=== PATIENT | male | born 1945 | race Caucasian/White ===

== ENCOUNTER 2021-03-23 13:49 | Inpatient (IN) ==
[2021-03-23] MEDS ORDERED: Ondansetron 4 MG/2 ML VIAL IVP PRN (18:04)
[2021-03-23] MEDS ORDERED: Naloxone 0.4 MG/ML INJ IVP PRN (18:04)
[2021-03-23] MEDS ORDERED: *HR* LORazepam 2 MG/ML VIAL IVP PRN ×2 (19:27→21:46)
[2021-03-23] MEDS: Lactulose Oral Soln 20 GM/30 ML UDC PO SCH ×2 (20:24→22:21)
[2021-03-23] MEDS ORDERED: Lactulose 200 GM, Sodium Chloride IRRigation 700 ML RC ONE (20:55)
[2021-03-23] MEDS: Ipratropium/Albuterol Neb 3 ML IH SCH ×2 (21:04→23:43)
[2021-03-23 21:09] LABS: ABG Base Excess 0 mEq/L (-2 to 3); ABG HCO3 24 mEq/L (21-27); ABG Oxygen Saturation 90 % (95-98); ABG PCO2 37 mmHg (35-45); ABG PH 7.43 pH Units (7.32-7.45); ABG PO2 57 mmHg (85-104); ABG TCO2 26 mEq/L (20-26)
[2021-03-23] MEDS ORDERED: methylPREDNISolone 125 MG/2 ML VIAL IVP ONE (21:53)
[2021-03-23] MEDS ORDERED: Budesonide/Formoterol 160/4.5 1 PUFF INH IH SCH (22:00)
[2021-03-23] MEDS ORDERED: *HR* Labetalol 20 MG/4 ML SYRINGE IVP PRN (22:55)
[2021-03-23 23:21] LABS: Acetaminophen < 10 mcg/mL (10-20); Ethanol < 10 mg/dL (Less than 10); Salicylate < 2.5 mg/dL (15.0-30.0)
[2021-03-23 23:45] VITALS: BP 132/68; PULSE 67; TEMP 97.8; O2SAT 95
[2021-03-24] MEDS ORDERED: Piperacillin/Tazobactam 3.375 GM in 0.9 % Sodium Chloride Mini Bag 100 ML IVPB SCH
[2021-03-24 04:27] LABS: Hepatitis B Core IgM Nonreactive (Nonreactive); Hepatitis C Virus Antibody Nonreactive (Nonreactive)
[2021-03-24 04:29] LABS: Hepatitis A Antibody IgM Nonreactive (Nonreactive)
[2021-03-24] MEDS ORDERED: MethylPREDNISolone 40 MG/ML VIAL IVP SCH ×2 (06:00→18:07)
[2021-03-24 19:19] LABS: Hepatitis B Surface Antigen Nonreactive (Nonreactive)
== END 2021-03-24 00:36 | disposition short-term general hospital (02) | DRG 64 ==
LOC: 2NNU
PROVIDERS: ADMIT Student in an Organized Health Care Education/Training Program; ATTEND Student in an Organized Health Care Education/Training Program

== ENCOUNTER 2021-06-16 10:51 | Inpatient (IN) ==
[2021-06-16] MEDS ORDERED: Naloxone 0.4 MG/ML INJ IVP PRN (16:28)
[2021-06-16] MEDS ORDERED: Isovue-370 500 ML BOTTLE IVP ONE (16:39)
[2021-06-16 17:00] LABS: Basophils % 0.1 %; Eosinophils # 0.3 K/mcL (0.0-0.6); Eosinophils % 3.1 %; Hemoglobin 13.2 g/dL (12.9-16.9); Immature Granulocytes % 0.6 % (0-4); Lymphocytes # 0.4 K/mcL (0.6-4.6); Lymphocytes % 3.6 %; Mean Corpuscular HGB Conc 33.8 g/dL (31.6-35.5); Mean Corpuscular Hemoglobin 29.9 pg (28.0-33.3); Mean Corpuscular Volume 88.2 fL (83.0-100.0); Mean Platelet Volume 13.1 fL (9.4-12.4); Monocytes # 0.7 K/mcL (0.0-1.3); Monocytes % 6.4 %; Neutrophils # 9.1 K/mcL (1.6-8.9); Red Blood Count 4.42 M/mcL (4.19-5.50); Red Cell Distribution Width 13.6 % (11.5-14.5); Segmented Neutrophils % 86.2 %; White Blood Count 10.6 K/mcL (4.3-11.1)
[2021-06-16 17:02] LABS: Platelet Count 39 K/mcL (140-400)
[2021-06-16 17:11] LABS: Prothrombin Time 11.6 Seconds (9.4-12.1)
[2021-06-16] MEDS ORDERED: Meropenem 500 MG in Water for inj. (sterile) 10 ML IVP SCH (17:11)
[2021-06-16 17:19] LABS: Calcium 7.8 mg/dL (8.6-10.3)
[2021-06-16] MEDS: predniSONE 20 MG TABLET PO SCH (17:57)
[2021-06-16] MEDS: levETIRAcetam 250 MG TABLET PO SCH (17:57)
[2021-06-16] MEDS: Meropenem 1,000 MG in Water for inj. (sterile) 20 ML IVP SCH (17:57)
[2021-06-16] MEDS: Ipratropium/Albuterol Neb 3 ML IH PRN (18:24)
[2021-06-16] MEDS: Ergocalciferol (VIT D2) 50,000 UNIT (1.25MG) CAP PO SCH (18:41)
[2021-06-16] MEDS ORDERED: Isovue-370 500 ML BOTTLE PO ONE (18:57)
[2021-06-17 01:26] LABS: Eosinophils % 0.5 %; Red Cell Distribution Width 13.5 % (11.5-14.5)
[2021-06-17 01:28] LABS: Basophils % 0.3 %; Hematocrit 34.2 % (37.5-50.1); Hemoglobin 11.8 g/dL (12.9-16.9); Immature Granulocytes % 0.3 % (0-4); Immature Platelets 18.6 % (1.1-6.1); Lymphocytes # 0.2 K/mcL (0.6-4.6); Lymphocytes % 3.4 %; Mean Corpuscular HGB Conc 34.5 g/dL (31.6-35.5); Mean Corpuscular Hemoglobin 30.4 pg (28.0-33.3); Mean Corpuscular Volume 88.1 fL (83.0-100.0); Mean Platelet Volume 12.2 fL (9.4-12.4); Monocytes # 0.1 K/mcL (0.0-1.3); Monocytes % 1.8 %; Neutrophils # 5.8 K/mcL (1.6-8.9); Red Blood Count 3.88 M/mcL (4.19-5.50); Segmented Neutrophils % 93.7 %; White Blood Count 6.2 K/mcL (4.3-11.1)
[2021-06-17 01:31] LABS: Platelet Count 31 K/mcL (140-400)
[2021-06-17 01:33] LABS: INR 1.1; Prothrombin Time 12.3 Seconds (9.4-12.1)
[2021-06-17 01:43] LABS: Albumin 2.5 g/dL (3.5-5.7); Albumin/Globulin Ratio 1.1 (1.1-2.2); Bilirubin,Total 0.7 mg/dL (0.3-1.0); Calcium 7.4 mg/dL (8.6-10.3); Globulin 2.3 g/dL (2.4-3.5); Phosphorous 2.6 mg/dL (2.7-4.5); Potassium 4.7 mEq/L (3.5-5.1); Total Protein 4.8 g/dL (6.4-8.9)
[2021-06-17] MEDS: levETIRAcetam 250 MG TABLET PO SCH ×2 (06:24→17:13)
[2021-06-17] MEDS: Meropenem 1,000 MG in Water for inj. (sterile) 20 ML IVP SCH ×2 (06:25→17:12)
[2021-06-17 08:47] LABS: Retculocyte # 0.04 M/mcL (0.05-0.10)
[2021-06-17] MEDS: predniSONE 20 MG TABLET PO SCH (09:15)
[2021-06-17 10:33] LABS: Iron 82 mcg/dL (65-175); Lactate Dehydrogenase 229 Units/L (140-271)
[2021-06-17 11:00] LABS: Folate 6.5 ng/mL (3.0-16.0)
[2021-06-17 11:01] LABS: Vitamin B12 755 pg/mL (250-1100)
[2021-06-17 11:41] LABS: Troponin I 0.03 ng/mL (< 0.04)
[2021-06-17] MEDS: Acetylcysteine 10% 2 ML INHSOL IH SCH ×2 (11:51→20:30)
[2021-06-17] MEDS: Ipratropium/Albuterol Neb 3 ML IH PRN ×2 (11:51→20:30)
[2021-06-17 12:36] LABS: Hepatitis B Surface Antigen Nonreactive (Nonreactive)
[2021-06-17 13:04] LABS: Hepatitis C Virus Antibody Nonreactive (Nonreactive)
[2021-06-17 13:05] LABS: Hepatitis B Core IgM Nonreactive (Nonreactive)
[2021-06-17 13:06] LABS: HIV-1&2 Antibody & p24 Ag Nonreactive (Nonreactive); Hepatitis A Antibody IgM Nonreactive (Nonreactive)
[2021-06-18] MEDS: Acetylcysteine 10% 2 ML INHSOL IH SCH (04:05)
[2021-06-18] MEDS: Ipratropium/Albuterol Neb 3 ML IH PRN (04:05)
[2021-06-18] MEDS: Meropenem 1,000 MG in Water for inj. (sterile) 20 ML IVP SCH (05:16)
[2021-06-18] MEDS: levETIRAcetam 250 MG TABLET PO SCH ×2 (05:16→17:40)
[2021-06-18 05:20] LABS: Basophils % 0.2 %; Red Cell Distribution Width 13.5 % (11.5-14.5)
[2021-06-18 05:23] LABS: Eosinophils % 0.5 %; Hematocrit 36.1 % (37.5-50.1); Immature Granulocytes % 0.6 % (0-4); Lymphocytes # 0.5 K/mcL (0.6-4.6); Lymphocytes % 6.1 %; Mean Corpuscular HGB Conc 33.2 g/dL (31.6-35.5); Mean Corpuscular Hemoglobin 29.3 pg (28.0-33.3); Mean Platelet Volume 12.5 fL (9.4-12.4); Monocytes # 0.5 K/mcL (0.0-1.3); Monocytes % 6.2 %; Neutrophils # 7.4 K/mcL (1.6-8.9); Segmented Neutrophils % 86.4 %; White Blood Count 8.6 K/mcL (4.3-11.1)
[2021-06-18 05:25] LABS: Platelet Count 51 K/mcL (140-400)
[2021-06-18 05:34] LABS: Albumin 2.8 g/dL (3.5-5.7); Albumin/Globulin Ratio 1.2 (1.1-2.2); Bilirubin,Total 0.6 mg/dL (0.3-1.0); Calcium 8.2 mg/dL (8.6-10.3); Globulin 2.4 g/dL (2.4-3.5); Magnesium 2.1 mg/dL (1.6-2.6); Phosphorous 2.8 mg/dL (2.7-4.5); Potassium 4.3 mEq/L (3.5-5.1); Total Protein 5.2 g/dL (6.4-8.9)
[2021-06-18] MEDS: predniSONE 20 MG TABLET PO SCH (09:20)
[2021-06-18] MEDS ORDERED: Acetaminophen IV 1,000 MG/100 ML BAG IVPB ONE (20:58)
[2021-06-19 03:15] LABS: Lymphocytes % 6.1 %
[2021-06-19 03:17] LABS: Basophils % 0.1 %; Eosinophils # 0.5 K/mcL (0.0-0.6); Eosinophils % 6.3 %; Hematocrit 37.6 % (37.5-50.1); Hemoglobin 12.8 g/dL (12.9-16.9); Immature Granulocytes % 0.5 % (0-4); Immature Platelets 11.1 % (1.1-6.1); Lymphocytes # 0.5 K/mcL (0.6-4.6); Mean Corpuscular Hemoglobin 30.4 pg (28.0-33.3); Mean Corpuscular Volume 89.3 fL (83.0-100.0); Mean Platelet Volume 11.7 fL (9.4-12.4); Monocytes # 0.5 K/mcL (0.0-1.3); Monocytes % 7.1 %; Neutrophils # 5.9 K/mcL (1.6-8.9); Red Blood Count 4.21 M/mcL (4.19-5.50); Red Cell Distribution Width 13.6 % (11.5-14.5); Segmented Neutrophils % 79.9 %; White Blood Count 7.4 K/mcL (4.3-11.1)
[2021-06-19 03:18] LABS: Platelet Count 59 K/mcL (140-400)
[2021-06-19 03:31] LABS: Albumin 2.7 g/dL (3.5-5.7); Albumin/Globulin Ratio 1.1 (1.1-2.2); Bilirubin,Total 0.7 mg/dL (0.3-1.0); Calcium 8.1 mg/dL (8.6-10.3); Globulin 2.5 g/dL (2.4-3.5); Magnesium 2.1 mg/dL (1.6-2.6); Phosphorous 2.8 mg/dL (2.7-4.5); Potassium 4.3 mEq/L (3.5-5.1); Total Protein 5.2 g/dL (6.4-8.9)
[2021-06-19] MEDS: levETIRAcetam 250 MG TABLET PO SCH ×2 (05:13→17:43)
[2021-06-19] MEDS ORDERED: Perflutren Lipid Microsphere 1.3 ML in 0.9 % Sodium Chloride 8.7 ML IVP PRN (07:30)
[2021-06-19] MEDS: Aspirin 81 MG TAB.CHEW PO SCH (08:31)
[2021-06-19] MEDS: predniSONE 20 MG TABLET PO SCH (08:31)
[2021-06-20 03:21] LABS: Basophils % 0.2 %; Eosinophils # 0.1 K/mcL (0.0-0.6); Hematocrit 34.6 % (37.5-50.1); Hemoglobin 11.2 g/dL (12.9-16.9); Immature Granulocytes % 0.5 % (0-4); Immature Platelets 9.9 % (1.1-6.1); Lymphocytes # 0.4 K/mcL (0.6-4.6); Lymphocytes % 6.2 %; Mean Corpuscular HGB Conc 32.4 g/dL (31.6-35.5); Mean Corpuscular Hemoglobin 29.5 pg (28.0-33.3); Mean Corpuscular Volume 91.1 fL (83.0-100.0); Mean Platelet Volume 11.9 fL (9.4-12.4); Monocytes # 0.3 K/mcL (0.0-1.3); Monocytes % 5.2 %; Red Cell Distribution Width 13.5 % (11.5-14.5); Segmented Neutrophils % 86.9 %; White Blood Count 5.8 K/mcL (4.3-11.1)
[2021-06-20 03:24] LABS: Platelet Count 58 K/mcL (140-400)
[2021-06-20 03:41] LABS: Albumin 2.5 g/dL (3.5-5.7); Albumin/Globulin Ratio 1.1 (1.1-2.2); Bilirubin,Total 0.6 mg/dL (0.3-1.0); Calcium 7.8 mg/dL (8.6-10.3); Globulin 2.3 g/dL (2.4-3.5); Magnesium 2.2 mg/dL (1.6-2.6); Phosphorous 2.9 mg/dL (2.7-4.5); Potassium 4.5 mEq/L (3.5-5.1); Total Protein 4.8 g/dL (6.4-8.9)
[2021-06-20] MEDS: levETIRAcetam 250 MG TABLET PO SCH ×2 (05:19→17:00)
[2021-06-20] MEDS: predniSONE 20 MG TABLET PO SCH (09:25)
[2021-06-20] MEDS: Aspirin 81 MG TAB.CHEW PO SCH (09:25)
[2021-06-21 04:54] LABS: Eosinophils % 0.3 %; Mean Platelet Volume 11.4 fL (9.4-12.4)
[2021-06-21 04:56] LABS: Immature Granulocytes % 0.5 % (0-4); Immature Platelets 6.6 % (1.1-6.1); Lymphocytes # 0.4 K/mcL (0.6-4.6); Lymphocytes % 5.9 %; Mean Corpuscular HGB Conc 32.4 g/dL (31.6-35.5); Mean Corpuscular Hemoglobin 29.7 pg (28.0-33.3); Mean Corpuscular Volume 91.6 fL (83.0-100.0); Monocytes # 0.3 K/mcL (0.0-1.3); Monocytes % 4.7 %; Red Blood Count 4.04 M/mcL (4.19-5.50); Red Cell Distribution Width 13.3 % (11.5-14.5); Segmented Neutrophils % 88.6 %; White Blood Count 5.9 K/mcL (4.3-11.1)
[2021-06-21 04:57] LABS: Neutrophils # 5.2 K/mcL (1.6-8.9); Platelet Count 75 K/mcL (140-400)
[2021-06-21 05:11] LABS: Albumin 2.9 g/dL (3.5-5.7); Bilirubin,Total 0.6 mg/dL (0.3-1.0); Calcium 8.3 mg/dL (8.6-10.3); Globulin 2.8 g/dL (2.4-3.5); Magnesium 2.2 mg/dL (1.6-2.6); Phosphorous 2.8 mg/dL (2.7-4.5); Potassium 4.7 mEq/L (3.5-5.1); Total Protein 5.7 g/dL (6.4-8.9)
[2021-06-21] MEDS: levETIRAcetam 250 MG TABLET PO SCH ×2 (05:20→17:08)
[2021-06-21] MEDS: predniSONE 20 MG TABLET PO SCH (07:03)
[2021-06-21] MEDS: Aspirin 81 MG TAB.CHEW PO SCH (07:03)
[2021-06-21] MEDS ORDERED: *HR* Labetalol 20 MG/4 ML SYRINGE IVP PRN (08:13)
[2021-06-21 10:55] LABS: Estimated Average Glucose 114 mg/dl; Hemoglobin A1C 5.6 %
[2021-06-21] MEDS: 0.9 % Sodium Chloride 1,000 ML IVC SCH ×2 (12:01→20:25)
[2021-06-21] MEDS: amLODIPine 5 MG TABLET PO SCH (17:08)
[2021-06-21] MEDS ORDERED: Isovue-370 500 ML BOTTLE IVP ONE (19:00)
[2021-06-21] MEDS: Ipratropium/Albuterol Neb 3 ML IH PRN (22:51)
[2021-06-22 02:26] LABS: Basophils % 0.2 %; Eosinophils % 0.5 %; Hematocrit 34.2 % (37.5-50.1); Hemoglobin 10.9 g/dL (12.9-16.9); Immature Granulocytes % 0.6 % (0-4); Immature Platelets 5.1 % (1.1-6.1); Lymphocytes # 0.5 K/mcL (0.6-4.6); Lymphocytes % 8.3 %; Mean Corpuscular HGB Conc 31.9 g/dL (31.6-35.5); Mean Corpuscular Hemoglobin 29.4 pg (28.0-33.3); Mean Corpuscular Volume 92.2 fL (83.0-100.0); Mean Platelet Volume 11.1 fL (9.4-12.4); Monocytes # 0.5 K/mcL (0.0-1.3); Monocytes % 7.8 %; Neutrophils # 5.2 K/mcL (1.6-8.9); Platelet Count 83 K/mcL (140-400); Red Blood Count 3.71 M/mcL (4.19-5.50); Red Cell Distribution Width 13.4 % (11.5-14.5); Segmented Neutrophils % 82.6 %; White Blood Count 6.3 K/mcL (4.3-11.1)
[2021-06-22 02:44] LABS: Alanine Aminotransferase 24 Units/L (7-52); Albumin 2.6 g/dL (3.5-5.7); Albumin/Globulin Ratio 1.1 (1.1-2.2); Alkaline Phosphatase 75 Units/L (34-104); Aspartate Amino Transferase 28 Units/L (13-39); BUN/Creatinine Ratio 19 (6-26); Bilirubin,Total 0.5 mg/dL (0.3-1.0); Blood Urea Nitrogen 26 mg/dL (8-23); Calcium 7.9 mg/dL (8.6-10.3); Carbon Dioxide 24 mEq/L (23-29); Chloride 104 mEq/L (98-107); Globulin 2.4 g/dL (2.4-3.5); Glucose 106 mg/dL (70-105); Osmolality,Calculated 279 (280-300); Potassium 4.6 mEq/L (3.5-5.1); Sodium 132 mEq/L (136-145); eGFR For African Americans > 60 (> 60); eGFR For Non-African Americans 51 (> 60)
[2021-06-22] MEDS: levETIRAcetam 250 MG TABLET PO SCH ×2 (05:30→17:17)
[2021-06-22] MEDS: predniSONE 20 MG TABLET PO SCH (07:27)
[2021-06-22] MEDS: amLODIPine 5 MG TABLET PO SCH (07:27)
[2021-06-23 02:19] LABS: Eosinophils % 0.3 %; Hematocrit 36.5 % (37.5-50.1); Hemoglobin 11.7 g/dL (12.9-16.9); Mean Corpuscular HGB Conc 32.1 g/dL (31.6-35.5); Mean Corpuscular Hemoglobin 29.4 pg (28.0-33.3); Mean Corpuscular Volume 91.7 fL (83.0-100.0); Red Blood Count 3.98 M/mcL (4.19-5.50); Segmented Neutrophils % 83.5 %
[2021-06-23 02:20] LABS: Immature Granulocytes % 0.6 % (0-4); Lymphocytes # 0.5 K/mcL (0.6-4.6); Lymphocytes % 7.5 %; Mean Platelet Volume 11.3 fL (9.4-12.4); Monocytes # 0.5 K/mcL (0.0-1.3); Monocytes % 8.1 %; Neutrophils # 5.3 K/mcL (1.6-8.9); Platelet Count 81 K/mcL (140-400); Red Cell Distribution Width 13.4 % (11.5-14.5); White Blood Count 6.4 K/mcL (4.3-11.1)
[2021-06-23 02:40] LABS: Alanine Aminotransferase 36 Units/L (7-52); Albumin 2.7 g/dL (3.5-5.7); Alkaline Phosphatase 84 Units/L (34-104); Aspartate Amino Transferase 38 Units/L (13-39); BUN/Creatinine Ratio 19 (6-26); Bilirubin,Total 0.5 mg/dL (0.3-1.0); Blood Urea Nitrogen 25 mg/dL (8-23); Calcium 8.1 mg/dL (8.6-10.3); Carbon Dioxide 24 mEq/L (23-29); Chloride 104 mEq/L (98-107); Globulin 2.6 g/dL (2.4-3.5); Glucose 107 mg/dL (70-105); Osmolality,Calculated 279 (280-300); Phosphorous 2.7 mg/dL (2.7-4.5); Potassium 4.7 mEq/L (3.5-5.1); Sodium 132 mEq/L (136-145); Total Protein 5.3 g/dL (6.4-8.9); eGFR For African Americans > 60 (> 60); eGFR For Non-African Americans 53 (> 60)
[2021-06-23] MEDS: levETIRAcetam 250 MG TABLET PO SCH ×2 (05:06→17:10)
[2021-06-23] MEDS: predniSONE 20 MG TABLET PO SCH (08:33)
[2021-06-23] MEDS: Ergocalciferol (VIT D2) 50,000 UNIT (1.25MG) CAP PO SCH (17:10)
[2021-06-24] MEDS: levETIRAcetam 250 MG TABLET PO SCH ×2 (05:20→17:14)
[2021-06-24 05:44] LABS: Eosinophils % 0.2 %; Hematocrit 37.4 % (37.5-50.1); Immature Granulocytes % 0.7 % (0-4); Lymphocytes # 0.5 K/mcL (0.6-4.6); Lymphocytes % 9.1 %; Mean Corpuscular HGB Conc 32.1 g/dL (31.6-35.5); Mean Corpuscular Hemoglobin 29.3 pg (28.0-33.3); Mean Corpuscular Volume 91.4 fL (83.0-100.0); Mean Platelet Volume 10.8 fL (9.4-12.4); Monocytes # 0.5 K/mcL (0.0-1.3); Monocytes % 8.6 %; Neutrophils # 4.7 K/mcL (1.6-8.9); Red Blood Count 4.09 M/mcL (4.19-5.50); Red Cell Distribution Width 13.3 % (11.5-14.5); Segmented Neutrophils % 81.4 %; White Blood Count 5.8 K/mcL (4.3-11.1)
[2021-06-24 05:45] LABS: Platelet Count 81 K/mcL (140-400)
[2021-06-24] MEDS ORDERED: predniSONE 20 MG TABLET PO SCH (09:00)
[2021-06-25 05:35] LABS: Basophils % 0.1 %; Lymphocytes % 8.7 %; Mean Corpuscular Volume 92.3 fL (83.0-100.0); Red Cell Distribution Width 13.7 % (11.5-14.5)
[2021-06-25 05:37] LABS: Eosinophils % 0.4 %; Hematocrit 38.3 % (37.5-50.1); Hemoglobin 12.7 g/dL (12.9-16.9); Immature Granulocytes % 0.6 % (0-4); Lymphocytes # 0.7 K/mcL (0.6-4.6); Mean Corpuscular HGB Conc 33.2 g/dL (31.6-35.5); Mean Corpuscular Hemoglobin 30.6 pg (28.0-33.3); Mean Platelet Volume 10.7 fL (9.4-12.4); Monocytes # 0.7 K/mcL (0.0-1.3); Monocytes % 8.6 %; Neutrophils # 6.4 K/mcL (1.6-8.9); Red Blood Count 4.15 M/mcL (4.19-5.50); Segmented Neutrophils % 81.6 %; White Blood Count 7.8 K/mcL (4.3-11.1)
[2021-06-25 05:41] LABS: Platelet Count 93 K/mcL (140-400)
[2021-06-25] MEDS: levETIRAcetam 250 MG TABLET PO SCH (06:05)
[2021-06-25 07:00] VITALS: TEMP 97.6
[2021-06-25] MEDS ORDERED: predniSONE 20 MG TABLET PO SCH (09:00)
[2021-06-25] MEDS ORDERED: Aspirin Enteric Coated 81 MG Tablet PO SCH (09:00)
[2021-06-25 09:19] LABS: Influenza A PCR Negative (Negative); Influenza B PCR Negative (Negative); Resp. Syncytial Virus PCR Negative (Negative); SARS-CoV-2 by PCR (In House) Negative (Negative)
[2021-06-25 12:54] VITALS: BP 142/74; PULSE 54; O2SAT 93
[2021-06-26] MEDS ORDERED: predniSONE 10 MG TABLET PO ONE (09:00)
== END 2021-06-25 13:07 | DRG 871 ==
LOC: 2ANU → SUATTDRO 16:28 → 2ANU 06-17 05:58
PROVIDERS: ADMIT Internal Medicine; ATTEND Internal Medicine

== ENCOUNTER 2021-07-28 14:23 | Inpatient (IN) ==
[2021-07-28] MEDS ORDERED: levoFLOXacin 750 MG/150 ML 750 MG/150 ML BAG IVPB ONE (14:27)
[2021-07-28] MEDS ORDERED: methylPREDNISolone 125 MG/2 ML VIAL IVP ONE (14:27)
[2021-07-28] MEDS ORDERED: Ipratropium/Albuterol Neb 3 ML IH ONE (14:30)
[2021-07-28 15:04] LABS: Hemoglobin 12.7 g/dL (12.9-16.9); Mean Platelet Volume 10.9 fL (9.4-12.4)
[2021-07-28 15:06] LABS: Hematocrit 40.6 % (37.5-50.1); Immature Platelets 6.1 % (1.1-6.1); Mean Corpuscular HGB Conc 31.3 g/dL (31.6-35.5); Mean Corpuscular Hemoglobin 30.2 pg (28.0-33.3); Mean Corpuscular Volume 96.4 fL (83.0-100.0); Platelet Count 130 K/mcL (140-400); Red Blood Count 4.21 M/mcL (4.19-5.50); Red Cell Distribution Width 15.4 % (11.5-14.5); White Blood Count 29.7 K/mcL (4.3-11.1)
[2021-07-28 15:22] LABS: Lymphocytes # 1.2 K/mcL (0.6-4.6); Monocytes # 0.6 K/mcL (0.0-1.3); Neutrophils # 27.9 K/mcL (1.6-8.9); Platelet Estimate Slight Decrease (Normal)
[2021-07-28 15:27] LABS: INR 1.1
[2021-07-28 15:27] LABS: Albumin 3.2 g/dL (3.5-5.7); Bilirubin,Direct 0.2 mg/dL (0.0-0.2); Bilirubin,Indirect 0.8 mg/dL (0.0-1.0); Calcium 8.2 mg/dL (8.6-10.3); Globulin 3.3 g/dL (2.4-3.5); Potassium 4.6 mEq/L (3.5-5.1); Total Protein 6.5 g/dL (6.4-8.9); Troponin I 0.04 ng/mL (< 0.04)
[2021-07-28 15:30] LABS: Activated Partial Thrombo Time 28.8 Seconds (26.0-36.0)
[2021-07-28 15:34] LABS: ABG Base Excess -1 mEq/L (-2 to 3); ABG HCO3 32 mEq/L (21-27); ABG Oxygen Saturation 99 % (95-98); ABG PCO2 102 mmHg (35-45); ABG PO2 193 mmHg (85-104); ABG TCO2 35 mEq/L (20-26)
[2021-07-28 16:15] LABS: Adenovirus Not Detected (Not Detect); Bordetella Pertussis Not Detected (Not Detect); Chlamydophila pneumoniae Not Detected (Not Detect); Coronavirus 229E Not Detected (Not Detect); Coronavirus HKU1 Not Detected (Not Detect); Coronavirus NL63 Not Detected (Not Detect); Coronavirus OC43 Not Detected (Not Detect); Human Metapneumovirus Not Detected (Not Detect); Human Rhinovirus/Enterovirus Not Detected (Not Detect); Influenza A Subtype 2009 H1 Not Detected (Not Detect); Influenza B Not Detected (Not Detect); Mycoplasma pneumoniae Not Detected (Not Detect); Parainfluenza Virus 1 Not Detected (Not Detect); Parainfluenza Virus 2 Not Detected (Not Detect); Parainfluenza Virus 3 Not Detected (Not Detect); Parainfluenza Virus 4 Not Detected (Not Detect); Respiratory Syncytial Virus Not Detected (Not Detect); SARS-CoV-2 Not Detected (Not Detect)
[2021-07-28] MEDS ORDERED: 0.9 % Sodium Chloride 1,000 ML IVC SCH (16:30)
[2021-07-28 16:51] LABS: Albumin 3.2 g/dL (3.5-5.7); Albumin/Globulin Ratio 1.1 (1.1-2.2); Bilirubin,Direct 0.2 mg/dL (0.0-0.2); Bilirubin,Indirect 0.7 mg/dL (0.0-1.0); Bilirubin,Total 0.9 mg/dL (0.3-1.0); Total Protein 6.2 g/dL (6.4-8.9)
[2021-07-28 17:07] LABS: Amorphous Sediment,Urine Few per hpf (None-Few); Bacteria,Urine Few per hpf (None-Few); Bilirubin,Urine Negative (Negative); Blood,Urine Trace (Negative); Clarity,Urine Turbid (Clear); Color,Urine Yellow (Yellow); Glucose,Urine (UA) Normal (Normal); Granular Casts,Urine Few per lpf (None Seen); Hyaline Casts,Urine Few per lpf (None Seen); Ketones,Urine Negative (Negative); Leukocyte Esterase,Urine Negative (Negative); Mucus,Urine Few per lpf (None-Few); Nitrite,Urine Negative (Negative); Protein,Urine 200 mg/dL (Neg-Trace); RBC,Urine 0-3 per hpf (0-3); Urobilinogen,Urine Normal (Normal)
[2021-07-28] MEDS ORDERED: Ondansetron 4 MG/2 ML VIAL IVP PRN (17:15)
[2021-07-28] MEDS ORDERED: Naloxone 0.4 MG/ML INJ IVP PRN (17:15)
[2021-07-28 17:23] LABS: ABG Base Excess 1 mEq/L (-2 to 3); ABG HCO3 32 mEq/L (21-27); ABG Oxygen Saturation 100 % (95-98); ABG PCO2 89 mmHg (35-45); ABG PH 7.17 pH Units (7.32-7.45); ABG PO2 482 mmHg (85-104); ABG TCO2 35 mEq/L (20-26)
[2021-07-28] MEDS: *HR* Heparin 5,000 UNIT/ML VIAL SQ SCH (19:07)
[2021-07-28] MEDS: Ipratropium/Albuterol Neb 3 ML IH SCH ×2 (19:55→23:25)
[2021-07-28] MEDS: Budesonide/Formoterol 160/4.5 1 PUFF INH IH SCH (19:55)
[2021-07-28] MEDS: Vancomycin Oral Soln 125 MG/2.5 ML UDC PO SCH ×2 (21:31→22:01)
[2021-07-28] MEDS: levETIRAcetam 250 MG TABLET PO SCH (22:01)
[2021-07-29] MEDS: Piperacillin/Tazobactam 3.375 GM in 0.9 % Sodium Chloride Mini Bag 100 ML IVPB SCH ×3 (00:27→15:36)
[2021-07-29] MEDS: MethylPREDNISolone 40 MG/ML VIAL IVP SCH ×3 (00:28→15:37)
[2021-07-29] MEDS: Ipratropium/Albuterol Neb 3 ML IH SCH ×5 (03:56→20:22)
[2021-07-29 04:06] LABS: ABG Base Excess 1 mEq/L (-2 to 3); ABG HCO3 26 mEq/L (21-27); ABG Oxygen Saturation 93 % (95-98); ABG PCO2 43 mmHg (35-45); ABG PH 7.39 pH Units (7.32-7.45); ABG PO2 66 mmHg (85-104); ABG TCO2 27 mEq/L (20-26)
[2021-07-29] MEDS: *HR* Heparin 5,000 UNIT/ML VIAL SQ SCH ×2 (05:18→17:03)
[2021-07-29] MEDS: Budesonide/Formoterol 160/4.5 1 PUFF INH IH SCH ×2 (07:50→20:23)
[2021-07-29] MEDS: Vancomycin Oral Soln 125 MG/2.5 ML UDC PO SCH ×4 (09:18→19:49)
[2021-07-29] MEDS: Aspirin 81 MG TAB.CHEW PO SCH (09:18)
[2021-07-29] MEDS: levETIRAcetam 250 MG TABLET PO SCH ×2 (09:19→19:49)
[2021-07-29] MEDS: lisinopriL 5 MG TABLET PO SCH (09:19)
[2021-07-29] MEDS: Levothyroxine 25 MCG TABLET PO SCH (09:19)
[2021-07-29 10:59] LABS: Calcium 8.2 mg/dL (8.6-10.3); Magnesium 1.8 mg/dL (1.6-2.6); Phosphorous 3.7 mg/dL (2.7-4.5); Potassium 4.3 mEq/L (3.5-5.1)
[2021-07-29 11:15] LABS: Troponin I 0.06 ng/mL (< 0.04)
[2021-07-29] MEDS: Furosemide 20 MG/2 ML VIAL IVP SCH ×2 (13:27→19:51)
[2021-07-29 14:21] LABS: Hematocrit 34.2 % (37.5-50.1); Immature Platelets 9.3 % (1.1-6.1); Mean Corpuscular HGB Conc 32.2 g/dL (31.6-35.5); Mean Corpuscular Hemoglobin 30.4 pg (28.0-33.3); Mean Corpuscular Volume 94.5 fL (83.0-100.0); Mean Platelet Volume 11.3 fL (9.4-12.4); Red Blood Count 3.62 M/mcL (4.19-5.50); White Blood Count 9.7 K/mcL (4.3-11.1)
[2021-07-29 14:35] LABS: Platelet Count 66 K/mcL (140-400)
[2021-07-29 14:39] LABS: Lymphocytes # 0.5 K/mcL (0.6-4.6); Monocytes # 0.2 K/mcL (0.0-1.3)
[2021-07-29 14:40] LABS: Platelet Estimate Decreased (Normal)
[2021-07-29] MEDS: Acetylcysteine 10% 2 ML INHSOL IH SCH ×2 (15:17→20:23)
[2021-07-30] MEDS: Ipratropium/Albuterol Neb 3 ML IH SCH ×6 (00:21→19:55)
[2021-07-30] MEDS: MethylPREDNISolone 40 MG/ML VIAL IVP SCH ×3 (00:22→17:10)
[2021-07-30] MEDS: Piperacillin/Tazobactam 3.375 GM in 0.9 % Sodium Chloride Mini Bag 100 ML IVPB SCH ×3 (00:24→17:09)
[2021-07-30] MEDS: Acetylcysteine 10% 2 ML INHSOL IH SCH ×2 (03:47→11:51)
[2021-07-30] MEDS: *HR* Heparin 5,000 UNIT/ML VIAL SQ SCH ×2 (06:14→17:10)
[2021-07-30 06:21] LABS: ABG Base Excess 1 mEq/L (-2 to 3); ABG HCO3 25 mEq/L (21-27); ABG Oxygen Saturation 88 % (95-98); ABG PCO2 35 mmHg (35-45); ABG PH 7.46 pH Units (7.32-7.45); ABG PO2 51 mmHg (85-104); ABG TCO2 26 mEq/L (20-26)
[2021-07-30] MEDS: Budesonide/Formoterol 160/4.5 1 PUFF INH IH SCH ×2 (08:06→19:55)
[2021-07-30] MEDS: lisinopriL 5 MG TABLET PO SCH (09:41)
[2021-07-30] MEDS: Furosemide 20 MG/2 ML VIAL IVP SCH (09:41)
[2021-07-30] MEDS: Vancomycin Oral Soln 125 MG/2.5 ML UDC PO SCH ×4 (09:41→21:09)
[2021-07-30] MEDS: Aspirin 81 MG TAB.CHEW PO SCH (09:42)
[2021-07-30] MEDS: levETIRAcetam 250 MG TABLET PO SCH ×2 (09:42→20:51)
[2021-07-30] MEDS: Levothyroxine 25 MCG TABLET PO SCH (09:42)
[2021-07-30 17:39] LABS: Calcium 8.1 mg/dL (8.6-10.3); Potassium 3.9 mEq/L (3.5-5.1)
[2021-07-31] MEDS: Ipratropium/Albuterol Neb 3 ML IH SCH ×7 (00:01→23:53)
[2021-07-31] MEDS: Piperacillin/Tazobactam 3.375 GM in 0.9 % Sodium Chloride Mini Bag 100 ML IVPB SCH ×3 (04:01→20:09)
[2021-07-31] MEDS: *HR* Heparin 5,000 UNIT/ML VIAL SQ SCH (05:59)
[2021-07-31] MEDS: Budesonide/Formoterol 160/4.5 1 PUFF INH IH SCH ×2 (07:27→20:29)
[2021-07-31 08:05] LABS: Basophils % 0.1 %; Hematocrit 35.7 % (37.5-50.1); Hemoglobin 11.5 g/dL (12.9-16.9); Immature Granulocytes % 0.5 % (0-4); Immature Platelets 10.8 % (1.1-6.1); Lymphocytes # 0.3 K/mcL (0.6-4.6); Lymphocytes % 4.3 %; Mean Corpuscular HGB Conc 32.2 g/dL (31.6-35.5); Mean Corpuscular Hemoglobin 29.8 pg (28.0-33.3); Mean Corpuscular Volume 92.5 fL (83.0-100.0); Monocytes # 0.4 K/mcL (0.0-1.3); Monocytes % 4.7 %; Red Blood Count 3.86 M/mcL (4.19-5.50); Red Cell Distribution Width 14.8 % (11.5-14.5); Segmented Neutrophils % 90.4 %; White Blood Count 7.9 K/mcL (4.3-11.1)
[2021-07-31 08:12] LABS: Calcium 8.2 mg/dL (8.6-10.3); Magnesium 1.8 mg/dL (1.6-2.6); Phosphorous 3.6 mg/dL (2.7-4.5); Potassium 3.9 mEq/L (3.5-5.1)
[2021-07-31] MEDS: Vancomycin Oral Soln 125 MG/2.5 ML UDC PO SCH ×4 (08:12→20:09)
[2021-07-31] MEDS: Albumin 25% 25gram/100mL 25 GM/100 ML IV.SOLN IVPB SCH ×2 (08:12→16:23)
[2021-07-31] MEDS: lisinopriL 5 MG TABLET PO SCH (08:17)
[2021-07-31] MEDS: Aspirin 81 MG TAB.CHEW PO SCH (08:18)
[2021-07-31] MEDS: predniSONE 20 MG TABLET PO SCH (08:19)
[2021-07-31] MEDS: levETIRAcetam 250 MG TABLET PO SCH ×2 (08:20→20:09)
[2021-07-31] MEDS: Levothyroxine 25 MCG TABLET PO SCH (08:20)
[2021-07-31 08:29] LABS: Neutrophils # 7.1 K/mcL (1.6-8.9); Platelet Count 70 K/mcL (140-400)
[2021-07-31] MEDS ORDERED: 0.9 % Sodium Chloride 250 ML IVC ONE ×2 (09:06→10:05)
[2021-08-01] MEDS: Albumin 25% 25gram/100mL 25 GM/100 ML IV.SOLN IVPB SCH ×2 (00:15→09:44)
[2021-08-01 01:27] LABS: Basophils % 0.2 %; Hematocrit 31.4 % (37.5-50.1); Hemoglobin 10.1 g/dL (12.9-16.9); Immature Granulocytes % 0.6 % (0-4); Lymphocytes # 0.3 K/mcL (0.6-4.6); Lymphocytes % 5.1 %; Mean Corpuscular HGB Conc 32.2 g/dL (31.6-35.5); Mean Corpuscular Hemoglobin 29.6 pg (28.0-33.3); Mean Corpuscular Volume 92.1 fL (83.0-100.0); Mean Platelet Volume 11.1 fL (9.4-12.4); Monocytes # 0.3 K/mcL (0.0-1.3); Monocytes % 5.3 %; Neutrophils # 4.7 K/mcL (1.6-8.9); Red Blood Count 3.41 M/mcL (4.19-5.50); Red Cell Distribution Width 14.8 % (11.5-14.5); Segmented Neutrophils % 88.8 %; White Blood Count 5.3 K/mcL (4.3-11.1)
[2021-08-01 01:32] LABS: Platelet Count 54 K/mcL (140-400)
[2021-08-01 01:42] LABS: Calcium 8.2 mg/dL (8.6-10.3); Magnesium 1.7 mg/dL (1.6-2.6); Phosphorous 3.3 mg/dL (2.7-4.5)
[2021-08-01] MEDS: Ipratropium/Albuterol Neb 3 ML IH SCH ×5 (03:58→20:25)
[2021-08-01] MEDS: Piperacillin/Tazobactam 3.375 GM in 0.9 % Sodium Chloride Mini Bag 100 ML IVPB SCH ×4 (04:37→20:28)
[2021-08-01] MEDS: Levothyroxine 25 MCG TABLET PO SCH (06:25)
[2021-08-01] MEDS: Budesonide/Formoterol 160/4.5 1 PUFF INH IH SCH ×2 (07:45→20:25)
[2021-08-01] MEDS: Vancomycin Oral Soln 125 MG/2.5 ML UDC PO SCH ×4 (09:45→20:34)
[2021-08-01] MEDS: predniSONE 20 MG TABLET PO SCH (09:45)
[2021-08-01] MEDS: levETIRAcetam 250 MG TABLET PO SCH ×2 (09:45→20:35)
[2021-08-01] MEDS: lisinopriL 5 MG TABLET PO SCH (09:46)
[2021-08-01] MEDS: Aspirin 81 MG TAB.CHEW PO SCH (09:46)
[2021-08-01] MEDS: Lactobacillus 1 EACH CAP.SPRINK PO SCH (14:23)
[2021-08-02] MEDS: Budesonide/Formoterol 160/4.5 1 PUFF INH IH SCH ×4 (00:24→20:06)
[2021-08-02] MEDS: Ipratropium/Albuterol Neb 3 ML IH SCH ×6 (00:28→20:06)
[2021-08-02 02:48] LABS: Hemoglobin 11.3 g/dL (12.9-16.9); Red Cell Distribution Width 15.1 % (11.5-14.5)
[2021-08-02 02:50] LABS: Basophils % 0.2 %; Hematocrit 34.1 % (37.5-50.1); Immature Granulocytes % 0.5 % (0-4); Immature Platelets 7.7 % (1.1-6.1); Lymphocytes # 0.3 K/mcL (0.6-4.6); Lymphocytes % 4.6 %; Mean Corpuscular HGB Conc 33.1 g/dL (31.6-35.5); Mean Corpuscular Hemoglobin 30.5 pg (28.0-33.3); Mean Corpuscular Volume 92.2 fL (83.0-100.0); Mean Platelet Volume 11.5 fL (9.4-12.4); Monocytes # 0.4 K/mcL (0.0-1.3); Monocytes % 6.3 %; Neutrophils # 5.1 K/mcL (1.6-8.9); Platelet Count 62 K/mcL (140-400); Segmented Neutrophils % 88.4 %; White Blood Count 5.8 K/mcL (4.3-11.1)
[2021-08-02 03:06] LABS: Calcium 8.3 mg/dL (8.6-10.3); Magnesium 1.8 mg/dL (1.6-2.6); Phosphorous 2.7 mg/dL (2.7-4.5); Potassium 4.4 mEq/L (3.5-5.1)
[2021-08-02 03:36] LABS: Platelet Estimate Normal (Normal)
[2021-08-02] MEDS: Piperacillin/Tazobactam 3.375 GM in 0.9 % Sodium Chloride Mini Bag 100 ML IVPB SCH ×3 (05:54→19:51)
[2021-08-02] MEDS: Levothyroxine 25 MCG TABLET PO SCH (05:54)
[2021-08-02] MEDS: Lactobacillus 1 EACH CAP.SPRINK PO SCH (09:00)
[2021-08-02] MEDS: predniSONE 20 MG TABLET PO SCH (09:00)
[2021-08-02] MEDS: levETIRAcetam 250 MG TABLET PO SCH ×2 (09:00→19:52)
[2021-08-02] MEDS: Aspirin 81 MG TAB.CHEW PO SCH (09:00)
[2021-08-02] MEDS: Vancomycin Oral Soln 125 MG/2.5 ML UDC PO SCH ×4 (09:00→19:52)
[2021-08-02] MEDS: lisinopriL 5 MG TABLET PO SCH (09:00)
[2021-08-03] MEDS: Ipratropium/Albuterol Neb 3 ML IH SCH ×4 (00:08→11:56)
[2021-08-03] MEDS: Piperacillin/Tazobactam 3.375 GM in 0.9 % Sodium Chloride Mini Bag 100 ML IVPB SCH (04:29)
[2021-08-03] MEDS: Levothyroxine 25 MCG TABLET PO SCH (06:01)
[2021-08-03] MEDS: Budesonide/Formoterol 160/4.5 1 PUFF INH IH SCH (07:15)
[2021-08-03 08:09] LABS: Eosinophils % 0.5 %; Hemoglobin 12.3 g/dL (12.9-16.9)
[2021-08-03 08:11] LABS: Hematocrit 39.1 % (37.5-50.1); Immature Granulocytes % 0.8 % (0-4); Immature Platelets 8.7 % (1.1-6.1); Lymphocytes # 0.4 K/mcL (0.6-4.6); Mean Corpuscular HGB Conc 31.5 g/dL (31.6-35.5); Mean Corpuscular Hemoglobin 29.7 pg (28.0-33.3); Mean Corpuscular Volume 94.4 fL (83.0-100.0); Mean Platelet Volume 12.3 fL (9.4-12.4); Monocytes # 0.7 K/mcL (0.0-1.3); Neutrophils # 4.8 K/mcL (1.6-8.9); Red Blood Count 4.14 M/mcL (4.19-5.50); Red Cell Distribution Width 15.3 % (11.5-14.5); Segmented Neutrophils % 80.7 %
[2021-08-03 08:18] LABS: Platelet Count 61 K/mcL (140-400)
[2021-08-03 08:28] LABS: Calcium 8.8 mg/dL (8.6-10.3); Phosphorous 3.2 mg/dL (2.7-4.5); Potassium 3.8 mEq/L (3.5-5.1)
[2021-08-03] MEDS: Aspirin 81 MG TAB.CHEW PO SCH (08:28)
[2021-08-03] MEDS: Lactobacillus 1 EACH CAP.SPRINK PO SCH (08:28)
[2021-08-03] MEDS: levETIRAcetam 250 MG TABLET PO SCH (08:28)
[2021-08-03] MEDS: predniSONE 20 MG TABLET PO SCH (08:29)
[2021-08-03] MEDS: lisinopriL 5 MG TABLET PO SCH (08:29)
[2021-08-03] MEDS: Vancomycin Oral Soln 125 MG/2.5 ML UDC PO SCH (08:32)
[2021-08-03 10:34] VITALS: BP 132/65; PULSE 64; TEMP 97.4
[2021-08-03 11:58] VITALS: O2SAT 98
== END 2021-08-03 13:13 | disposition home health service (06) | DRG 871 ==
LOC: EMEROOARM 14:23 → 2NENU 14:23 → SUATTDRO 18:01 → 2NENU 18:50 → SUATTDRO 20:47 → 2ANU 07-30 20:35 → 3ANU 07-30 20:35 → 2ANU 07-30 20:40
PROVIDERS: ADMIT Family Medicine; ATTEND Hospitalist

== ENCOUNTER 2021-08-22 14:11 | Inpatient (IN) ==
[2021-08-22] MEDS ORDERED: Isovue-370 500 ML BOTTLE IVP ONE (14:47)
[2021-08-22 14:49] LABS: Red Blood Count 3.99 M/mcL (4.19-5.50)
[2021-08-22 14:51] LABS: Hemoglobin 12.4 g/dL (12.9-16.9); Immature Platelets 6.6 % (1.1-6.1); Mean Corpuscular HGB Conc 30.2 g/dL (31.6-35.5); Mean Corpuscular Hemoglobin 31.1 pg (28.0-33.3); Mean Corpuscular Volume 102.8 fL (83.0-100.0); Mean Platelet Volume 10.9 fL (9.4-12.4); Platelet Count 103 K/mcL (140-400); White Blood Count 4.5 K/mcL (4.3-11.1)
[2021-08-22 15:02] LABS: Prothrombin Time 11.1 Seconds (9.4-12.1)
[2021-08-22 15:05] LABS: Activated Partial Thrombo Time 31.8 Seconds (26.0-36.0)
[2021-08-22 15:08] LABS: Alanine Aminotransferase 70 Units/L (7-52); Albumin 3.1 g/dL (3.5-5.7); Alkaline Phosphatase 171 Units/L (34-104); Aspartate Amino Transferase 47 Units/L (13-39); BUN/Creatinine Ratio 23 (6-26); Bilirubin,Direct 0.5 mg/dL (0.0-0.2); Bilirubin,Indirect 1.6 mg/dL (0.0-1.0); Bilirubin,Total 2.1 mg/dL (0.3-1.0); Blood Urea Nitrogen 44 mg/dL (8-23); Calcium 8.6 mg/dL (8.6-10.3); Carbon Dioxide 34 mEq/L (23-29); Chloride 106 mEq/L (98-107); Creatine Kinase 82 Units/L (30-223); Ethanol < 10 mg/dL (Less than 10); Globulin 3.2 g/dL (2.4-3.5); Glucose 117 mg/dL (70-105); Osmolality,Calculated 306 (280-300); Potassium 5.2 mEq/L (3.5-5.1); Sodium 142 mEq/L (136-145); Total Protein 6.3 g/dL (6.4-8.9); Troponin I 0.03 ng/mL (< 0.04); eGFR For African Americans 41 (> 60); eGFR For Non-African Americans 34 (> 60)
[2021-08-22 15:47] LABS: Amphetamine Screen,Urine Negative ng/mL (Cutoff=1000); Barbiturate Screen,Urine Negative ng/mL (Cutoff=200); Benzodiazepines Screen,Urine Negative ng/mL (Cutoff=200); Cannabinoid Screen,Urine Negative ng/mL (Cutoff = 50); Cocaine Screen,Urine Negative ng/mL (Cutoff= 300); Opiate Screen,Urine Negative ng/mL (Cutoff=300); Phencyclidine Screen,Urine Negative ng/mL (Cutoff=25)
[2021-08-22 15:53] LABS: Amorphous Sediment,Urine Few per hpf (None-Few); Bacteria,Urine Few per hpf (None-Few); Bilirubin,Urine Negative (Negative); Blood,Urine Trace (Negative); Clarity,Urine Turbid (Clear); Color,Urine Yellow (Yellow); Glucose,Urine (UA) Normal (Normal); Ketones,Urine Negative (Negative); Leukocyte Esterase,Urine Negative (Negative); Mucus,Urine Few per lpf (None-Few); Nitrite,Urine Negative (Negative); Protein,Urine 50 mg/dL (Neg-Trace); RBC,Urine 0-3 per hpf (0-3); Squamous Epithelial Cell,Urine Few per hpf (None-Few); Urobilinogen,Urine Normal (Normal); WBC,Urine 0-3 per hpf (0-3)
[2021-08-22 16:01] LABS: Anisocytosis 1+ (Not Present); Large Platelets Present (Not Present); Platelet Estimate Decreased (Normal)
[2021-08-22 16:08] LABS: Neutrophils # 3.3 K/mcL (1.6-8.9)
[2021-08-22 20:37] LABS: Influenza A PCR Negative (Negative); Influenza B PCR Negative (Negative); Resp. Syncytial Virus PCR Negative (Negative); SARS-CoV-2 by PCR (In House) Negative (Negative)
[2021-08-22] MEDS ORDERED: Perflutren Lipid Microsphere 1.3 ML in 0.9 % Sodium Chloride 8.7 ML IVP PRN (22:40)
[2021-08-22] MEDS ORDERED: Ondansetron 4 MG/2 ML VIAL IVP PRN (22:49)
[2021-08-22] MEDS ORDERED: Naloxone 0.4 MG/ML INJ IVP PRN (22:49)
[2021-08-23] MEDS: Levalbuterol Neb 1.25 MG/3 ML IH SCH ×6 (00:01→20:49)
[2021-08-23] MEDS: Piperacillin/Tazobactam 3.375 GM in 0.9 % Sodium Chloride Mini Bag 100 ML IVPB SCH ×3 (00:52→16:46)
[2021-08-23] MEDS ORDERED: Vancomycin 1,250 MG/262.5 ML IV.SOLN IVPB ONE (01:00)
[2021-08-23] MEDS ORDERED: Aspirin Enteric Coated 81 MG Tablet PO ONE (01:17)
[2021-08-23 02:47] LABS: Hematocrit 36.4 % (37.5-50.1); Hemoglobin 11.1 g/dL (12.9-16.9); Mean Corpuscular HGB Conc 30.5 g/dL (31.6-35.5); Mean Corpuscular Hemoglobin 31.2 pg (28.0-33.3); Mean Corpuscular Volume 102.2 fL (83.0-100.0); Mean Platelet Volume 11.6 fL (9.4-12.4); Red Blood Count 3.56 M/mcL (4.19-5.50); Red Cell Distribution Width 16.1 % (11.5-14.5)
[2021-08-23 02:49] LABS: Platelet Count 85 K/mcL (140-400)
[2021-08-23 02:58] LABS: Prothrombin Time 11.1 Seconds (9.4-12.1)
[2021-08-23 03:03] LABS: Calcium 8.4 mg/dL (8.6-10.3); Chol/HDL Ratio 4.2 (0-4.9); Magnesium 2.1 mg/dL (1.6-2.6)
[2021-08-23 03:18] LABS: Thyroid Stimulating Hormone 2.773 mcIU/mL (0.340-5.600)
[2021-08-23 03:29] LABS: Folate 7.6 ng/mL (3.0-16.0)
[2021-08-23 04:18] LABS: Estimated Average Glucose 94 mg/dl; Hemoglobin A1C 4.9 %
[2021-08-23] MEDS: Famotidine 20 MG/2 ML VIAL IVP SCH ×2 (06:08→16:38)
[2021-08-23] MEDS ORDERED: methylPREDNISolone 125 MG/2 ML VIAL IVP STA (09:50)
[2021-08-23] MEDS: Ipratropium Neb 0.5 MG NEBULIZER IH SCH ×5 (11:56→23:54)
[2021-08-23 12:06] LABS: ABG Base Excess 6 mEq/L (-2 to 3); ABG HCO3 35 mEq/L (21-27); ABG Oxygen Saturation 97 % (95-98); ABG PCO2 78 mmHg (35-45); ABG PH 7.26 pH Units (7.32-7.45); ABG PO2 105 mmHg (85-104); ABG TCO2 37 mEq/L (20-26)
[2021-08-23] MEDS ORDERED: *HR* Dextrose 50 % in Water (Syg) 50 ML SYRINGE IVP PRN (14:10)
[2021-08-23] MEDS ORDERED: D5% in Water 1,000 ML IVC PRN (14:10)
[2021-08-23] MEDS ORDERED: Dextrose Gel 15 GM/37.5 ML TUBE PO PRN ×2 (14:10)
[2021-08-23 14:21] LABS: ABG Base Excess 3 mEq/L (-2 to 3); ABG HCO3 29 mEq/L (21-27); ABG Oxygen Saturation 88 % (95-98); ABG PCO2 51 mmHg (35-45); ABG PH 7.36 pH Units (7.32-7.45); ABG PO2 58 mmHg (85-104); ABG TCO2 30 mEq/L (20-26)
[2021-08-23] MEDS: MethylPREDNISolone 40 MG/ML VIAL IVP SCH (16:37)
[2021-08-24] MEDS: Piperacillin/Tazobactam 3.375 GM in 0.9 % Sodium Chloride Mini Bag 100 ML IVPB SCH ×3 (00:07→17:50)
[2021-08-24] MEDS: MethylPREDNISolone 40 MG/ML VIAL IVP SCH ×3 (00:07→17:50)
[2021-08-24] MEDS: Levalbuterol Neb 1.25 MG/3 ML IH SCH ×4 (04:01→20:06)
[2021-08-24] MEDS: Ipratropium Neb 0.5 MG NEBULIZER IH SCH ×4 (04:01→20:06)
[2021-08-24] MEDS: Famotidine 20 MG/2 ML VIAL IVP SCH (05:27)
[2021-08-24 06:32] LABS: Hematocrit 25.6 % (37.5-50.1); Hemoglobin 7.9 g/dL (12.9-16.9); Immature Platelets 6.9 % (1.1-6.1); Mean Corpuscular HGB Conc 30.9 g/dL (31.6-35.5); Mean Corpuscular Hemoglobin 30.4 pg (28.0-33.3); Mean Corpuscular Volume 98.5 fL (83.0-100.0); Mean Platelet Volume 11.9 fL (9.4-12.4); Red Blood Count 2.6 M/mcL (4.19-5.50); Red Cell Distribution Width 16.5 % (11.5-14.5); White Blood Count 2.8 K/mcL (4.3-11.1)
[2021-08-24 06:49] LABS: Calcium 8.1 mg/dL (8.6-10.3); Potassium 5.1 mEq/L (3.5-5.1)
[2021-08-24] MEDS ORDERED: Aspirin Enteric Coated 81 MG Tablet PO SCH (09:00)
[2021-08-24] MEDS ORDERED: Pantoprazole 40 MG VIAL IVP STA (09:00)
[2021-08-24] MEDS ORDERED: Octreotide 50 MCG/ML INJ IVP STA (09:02)
[2021-08-24] MEDS: levoFLOXacin 750 MG/150 ML 750 MG/150 ML BAG IVPB SCH (09:56)
[2021-08-24] MEDS ORDERED: 0.9 % Sodium Chloride 250 ML ONE (10:42)
[2021-08-24 11:16] LABS: Hematocrit 29.6 % (37.5-50.1); Hemoglobin 8.8 g/dL (12.9-16.9)
[2021-08-24] MEDS: Octreotide 400 MCG in 0.9 % Sodium Chloride 100 ML IVC SCH ×2 (14:05→21:17)
[2021-08-24] MEDS: Pantoprazole 40 MG VIAL IVP SCH (17:50)
[2021-08-24 18:00] LABS: Hematocrit 31.1 % (37.5-50.1); Hemoglobin 9.7 g/dL (12.9-16.9)
[2021-08-25] MEDS: MethylPREDNISolone 40 MG/ML VIAL IVP SCH ×4 (00:03→23:52)
[2021-08-25] MEDS: Piperacillin/Tazobactam 3.375 GM in 0.9 % Sodium Chloride Mini Bag 100 ML IVPB SCH ×3 (00:03→23:52)
[2021-08-25] MEDS: Levalbuterol Neb 1.25 MG/3 ML IH SCH ×4 (04:18→20:20)
[2021-08-25] MEDS: Ipratropium Neb 0.5 MG NEBULIZER IH SCH ×4 (04:18→20:20)
[2021-08-25 04:25] LABS: Immature Granulocytes % 0.4 % (0-4); White Blood Count 2.4 K/mcL (4.3-11.1)
[2021-08-25 04:27] LABS: Hemoglobin 9.4 g/dL (12.9-16.9); Immature Platelets 7.2 % (1.1-6.1); Lymphocytes # 0.2 K/mcL (0.6-4.6); Lymphocytes % 9.4 %; Mean Corpuscular HGB Conc 30.3 g/dL (31.6-35.5); Mean Corpuscular Hemoglobin 30.1 pg (28.0-33.3); Mean Corpuscular Volume 99.4 fL (83.0-100.0); Mean Platelet Volume 11.8 fL (9.4-12.4); Monocytes # 0.2 K/mcL (0.0-1.3); Red Blood Count 3.12 M/mcL (4.19-5.50); Red Cell Distribution Width 16.9 % (11.5-14.5); Segmented Neutrophils % 81.2 %
[2021-08-25 04:41] LABS: Platelet Count 47 K/mcL (140-400)
[2021-08-25 04:43] LABS: Calcium 8.1 mg/dL (8.6-10.3); Potassium 5.3 mEq/L (3.5-5.1)
[2021-08-25] MEDS: Octreotide 400 MCG in 0.9 % Sodium Chloride 100 ML IVC SCH (05:39)
[2021-08-25] MEDS: Pantoprazole 40 MG VIAL IVP SCH ×2 (05:40→19:04)
[2021-08-25] MEDS ORDERED: 0.9 % Sodium Chloride 500 ML IVC SCH (08:15)
[2021-08-25] MEDS: Albumin Human 5% 12.5 GM/250 ML IV.SOLN IVC SCH ×2 (10:52→16:35)
[2021-08-25] MEDS ORDERED: Morphine Sulfate 2 MG/ML SYRINGE IVP PRN (14:36)
[2021-08-25 17:06] LABS: Calcium 7.8 mg/dL (8.6-10.3); Potassium 5.3 mEq/L (3.5-5.1)
[2021-08-26] MEDS: Ipratropium Neb 0.5 MG NEBULIZER IH SCH ×4 (04:55→19:27)
[2021-08-26] MEDS: Levalbuterol Neb 1.25 MG/3 ML IH SCH ×4 (04:55→19:27)
[2021-08-26] MEDS ORDERED: 0.9 % Sodium Chloride 500 ML ONE (05:29)
[2021-08-26 05:35] LABS: Calcium 7.7 mg/dL (8.6-10.3); Potassium 5.6 mEq/L (3.5-5.1)
[2021-08-26 05:43] LABS: Basophils % 0.2 %; Immature Granulocytes % 0.9 % (0-4); Monocytes % 6.7 %; Nucleated Red Blood Cells 0.4 /100 WBC (0)
[2021-08-26 05:44] LABS: Hematocrit 33.4 % (37.5-50.1); Hemoglobin 10.2 g/dL (12.9-16.9); Immature Platelets 7.2 % (1.1-6.1); Lymphocytes # 0.4 K/mcL (0.6-4.6); Lymphocytes % 7.5 %; Mean Corpuscular HGB Conc 30.5 g/dL (31.6-35.5); Mean Corpuscular Hemoglobin 30.4 pg (28.0-33.3); Mean Corpuscular Volume 99.7 fL (83.0-100.0); Mean Platelet Volume 12.1 fL (9.4-12.4); Monocytes # 0.3 K/mcL (0.0-1.3); Red Blood Count 3.35 M/mcL (4.19-5.50); Red Cell Distribution Width 16.2 % (11.5-14.5); Segmented Neutrophils % 84.7 %; White Blood Count 4.7 K/mcL (4.3-11.1)
[2021-08-26 05:53] LABS: Platelet Count 56 K/mcL (140-400)
[2021-08-26] MEDS: Pantoprazole 40 MG VIAL IVP SCH ×2 (06:17→17:31)
[2021-08-26] MEDS: levoFLOXacin 750 MG/150 ML 750 MG/150 ML BAG IVPB SCH (08:12)
[2021-08-26] MEDS: MethylPREDNISolone 40 MG/ML VIAL IVP SCH ×2 (08:12→17:30)
[2021-08-26] MEDS: Piperacillin/Tazobactam 3.375 GM in 0.9 % Sodium Chloride Mini Bag 100 ML IVPB SCH ×3 (11:50→23:48)
[2021-08-26 18:03] LABS: Uric Acid 11.1 mg/dL (2.3-7.6)
[2021-08-26 22:53] LABS: Bacteria,Urine Few per hpf (None-Few); Bilirubin,Urine Negative (Negative); Blood,Urine Large (Negative); Clarity,Urine Turbid (Clear); Color,Urine Yellow (Yellow); Glucose,Urine (UA) Normal (Normal); Ketones,Urine Trace mg/dL (Negative); Leukocyte Esterase,Urine Negative (Negative); Mucus,Urine Few per lpf (None-Few); Nitrite,Urine Negative (Negative); PH,Urine 5.5 pH Units (5.0-8.0); Protein,Urine 100 mg/dL (Neg-Trace); RBC,Urine TNTC per hpf (0-3); Specific Gravity,Urine 1.022 (1.010-1.025); Squamous Epithelial Cell,Urine Few per hpf (None-Few); Urobilinogen,Urine Normal (Normal)
[2021-08-26 22:57] LABS: Protein/Creatinine Ratio,Urine 1.39 mg/mg (0.00-0.20); Sodium, Urine 24.4 mEq/L
[2021-08-27] MEDS: Ipratropium Neb 0.5 MG NEBULIZER IH SCH ×4 (03:51→20:20)
[2021-08-27] MEDS: Levalbuterol Neb 1.25 MG/3 ML IH SCH ×4 (03:51→20:20)
[2021-08-27] MEDS: Pantoprazole 40 MG VIAL IVP SCH ×2 (05:00→18:37)
[2021-08-27] MEDS: MethylPREDNISolone 40 MG/ML VIAL IVP SCH ×2 (05:00→18:38)
[2021-08-27] MEDS ORDERED: E-Z-HD (BARIUM SULF) SUSPENSION PO ONE (10:18)
[2021-08-27] MEDS ORDERED: E-Z-PAQUE (BARIUM SULF) SUSP 1 BOTTLE PO ONE (10:18)
[2021-08-27 10:50] LABS: Basophils % 0.2 %; Hemoglobin 11.2 g/dL (12.9-16.9)
[2021-08-27 10:52] LABS: Hematocrit 36.7 % (37.5-50.1); Immature Granulocytes % 1.6 % (0-4); Immature Platelets 7.2 % (1.1-6.1); Lymphocytes # 0.3 K/mcL (0.6-4.6); Lymphocytes % 6.5 %; Mean Corpuscular HGB Conc 30.5 g/dL (31.6-35.5); Mean Corpuscular Hemoglobin 30.1 pg (28.0-33.3); Mean Corpuscular Volume 98.7 fL (83.0-100.0); Mean Platelet Volume 11.8 fL (9.4-12.4); Monocytes # 0.3 K/mcL (0.0-1.3); Monocytes % 6.7 %; Neutrophils # 4.3 K/mcL (1.6-8.9); Red Blood Count 3.72 M/mcL (4.19-5.50); White Blood Count 5.1 K/mcL (4.3-11.1)
[2021-08-27 11:06] LABS: Platelet Count 58 K/mcL (140-400)
[2021-08-27 11:14] LABS: Calcium 7.7 mg/dL (8.6-10.3); Potassium 5.3 mEq/L (3.5-5.1)
[2021-08-27] MEDS: Piperacillin/Tazobactam 3.375 GM in 0.9 % Sodium Chloride Mini Bag 100 ML IVPB SCH (13:24)
[2021-08-27] MEDS: levETIRAcetam 250 MG in 0.9 % Sodium Chloride 100 ML IVPB SCH (19:48)
[2021-08-28 01:21] LABS: Basophils % 0.2 %; Mean Platelet Volume 11.4 fL (9.4-12.4)
[2021-08-28 01:23] LABS: Eosinophils % 0.2 %; Hematocrit 34.3 % (37.5-50.1); Hemoglobin 10.7 g/dL (12.9-16.9); Immature Granulocytes % 1.2 % (0-4); Immature Platelets 6.8 % (1.1-6.1); Lymphocytes # 0.3 K/mcL (0.6-4.6); Lymphocytes % 5.7 %; Mean Corpuscular HGB Conc 31.2 g/dL (31.6-35.5); Mean Corpuscular Hemoglobin 30.6 pg (28.0-33.3); Monocytes # 0.5 K/mcL (0.0-1.3); Monocytes % 8.7 %; Neutrophils # 4.7 K/mcL (1.6-8.9); Red Cell Distribution Width 15.8 % (11.5-14.5); White Blood Count 5.6 K/mcL (4.3-11.1)
[2021-08-28 01:28] LABS: Platelet Count 55 K/mcL (140-400)
[2021-08-28] MEDS: Piperacillin/Tazobactam 3.375 GM in 0.9 % Sodium Chloride Mini Bag 100 ML IVPB SCH ×2 (01:28→12:00)
[2021-08-28 01:37] LABS: Calcium 7.2 mg/dL (8.6-10.3); Potassium 5.1 mEq/L (3.5-5.1)
[2021-08-28] MEDS: Ipratropium Neb 0.5 MG NEBULIZER IH SCH ×4 (04:15→20:38)
[2021-08-28] MEDS: Levalbuterol Neb 1.25 MG/3 ML IH SCH ×4 (04:15→20:38)
[2021-08-28] MEDS: MethylPREDNISolone 40 MG/ML VIAL IVP SCH (05:58)
[2021-08-28] MEDS: Pantoprazole 40 MG VIAL IVP SCH ×2 (05:58→17:11)
[2021-08-28] MEDS: Albumin 25% 25gram/100mL 25 GM/100 ML IV.SOLN IVPB SCH ×2 (08:39→17:10)
[2021-08-28] MEDS: levoFLOXacin 750 MG/150 ML 750 MG/150 ML BAG IVPB SCH (08:39)
[2021-08-28] MEDS: predniSONE 20 MG TABLET PO SCH (08:40)
[2021-08-28 10:07] LABS: INR 1.2
[2021-08-28 10:17] LABS: Albumin 2.9 g/dL (3.5-5.7); Albumin/Globulin Ratio 1.1 (1.1-2.2); Bilirubin,Direct 0.1 mg/dL (0.0-0.2); Bilirubin,Indirect 0.6 mg/dL (0.0-1.0); Bilirubin,Total 0.7 mg/dL (0.3-1.0); Globulin 2.6 g/dL (2.4-3.5); Total Protein 5.5 g/dL (6.4-8.9)
[2021-08-28] MEDS: Melatonin 3 MG TABLET PO PRN (20:24)
[2021-08-29] MEDS: Albumin 25% 25gram/100mL 25 GM/100 ML IV.SOLN IVPB SCH ×3 (00:35→16:19)
[2021-08-29] MEDS: Piperacillin/Tazobactam 3.375 GM in 0.9 % Sodium Chloride Mini Bag 100 ML IVPB SCH ×2 (00:38→12:12)
[2021-08-29] MEDS: Ipratropium Neb 0.5 MG NEBULIZER IH SCH ×4 (04:06→20:52)
[2021-08-29] MEDS: Levalbuterol Neb 1.25 MG/3 ML IH SCH ×4 (04:06→20:52)
[2021-08-29] MEDS: Pantoprazole 40 MG VIAL IVP SCH ×2 (05:29→20:54)
[2021-08-29 09:23] LABS: Hemoglobin 10.2 g/dL (12.9-16.9); Mean Corpuscular Volume 98.2 fL (83.0-100.0)
[2021-08-29 09:25] LABS: Hematocrit 32.8 % (37.5-50.1); Immature Granulocytes % 1.3 % (0-4); Immature Platelets 8.2 % (1.1-6.1); Lymphocytes # 0.3 K/mcL (0.6-4.6); Lymphocytes % 6.7 %; Mean Corpuscular HGB Conc 31.1 g/dL (31.6-35.5); Mean Corpuscular Hemoglobin 30.5 pg (28.0-33.3); Mean Platelet Volume 11.7 fL (9.4-12.4); Monocytes # 0.5 K/mcL (0.0-1.3); Monocytes % 11.9 %; Neutrophils # 3.1 K/mcL (1.6-8.9); Red Blood Count 3.34 M/mcL (4.19-5.50); Segmented Neutrophils % 79.1 %; White Blood Count 3.9 K/mcL (4.3-11.1)
[2021-08-29] MEDS: levETIRAcetam 250 MG in 0.9 % Sodium Chloride 100 ML IVPB SCH ×2 (09:29→21:07)
[2021-08-29 09:48] LABS: Calcium 7.7 mg/dL (8.6-10.3); Potassium 4.5 mEq/L (3.5-5.1)
[2021-08-29 09:50] LABS: Platelet Count 34 K/mcL (140-400)
[2021-08-29 10:04] LABS: Platelet Estimate Decreased (Normal)
[2021-08-29] MEDS ORDERED: Lidocaine -MPF 2% 5 ML VIAL ONE (10:13)
[2021-08-29] MEDS: predniSONE 20 MG TABLET PO SCH (16:19)
[2021-08-30] MEDS: Piperacillin/Tazobactam 3.375 GM in 0.9 % Sodium Chloride Mini Bag 100 ML IVPB SCH (00:07)
[2021-08-30] MEDS: Albumin 25% 25gram/100mL 25 GM/100 ML IV.SOLN IVPB SCH ×3 (00:07→16:39)
[2021-08-30] MEDS: Ipratropium Neb 0.5 MG NEBULIZER IH SCH ×4 (04:25→20:00)
[2021-08-30] MEDS: Levalbuterol Neb 1.25 MG/3 ML IH SCH ×4 (04:25→20:00)
[2021-08-30] MEDS: Pantoprazole 40 MG VIAL IVP SCH ×2 (05:08→16:39)
[2021-08-30 08:30] LABS: Calcium 8.2 mg/dL (8.6-10.3); Potassium 4.9 mEq/L (3.5-5.1)
[2021-08-30] MEDS: predniSONE 20 MG TABLET PO SCH (08:42)
[2021-08-30] MEDS ORDERED: levoFLOXacin 500 MG/100 ML 500 MG/100 ML BAG IVPB SCH (10:00)
[2021-08-30] MEDS: levoFLOXacin 750 MG/150 ML 750 MG/150 ML BAG IVPB SCH (11:05)
[2021-08-30 11:54] LABS: Basophils % 0.2 %; Eosinophils % 0.5 %; Hematocrit 28.4 % (37.5-50.1); Hemoglobin 9.3 g/dL (12.9-16.9); Immature Granulocytes % 3.4 % (0-4); Lymphocytes # 0.5 K/mcL (0.6-4.6); Lymphocytes % 9.1 %; Mean Corpuscular HGB Conc 32.7 g/dL (31.6-35.5); Mean Corpuscular Hemoglobin 30.9 pg (28.0-33.3); Mean Corpuscular Volume 94.4 fL (83.0-100.0); Mean Platelet Volume 12.7 fL (9.4-12.4); Monocytes # 0.4 K/mcL (0.0-1.3); Monocytes % 6.6 %; Neutrophils # 4.5 K/mcL (1.6-8.9); Red Blood Count 3.01 M/mcL (4.19-5.50); Red Cell Distribution Width 16.1 % (11.5-14.5); Segmented Neutrophils % 80.2 %; White Blood Count 5.6 K/mcL (4.3-11.1)
[2021-08-30 11:59] LABS: Platelet Count 25 K/mcL (140-400)
[2021-08-30] MEDS: levETIRAcetam 250 MG in 0.9 % Sodium Chloride 100 ML IVPB SCH (12:23)
[2021-08-30] MEDS: levETIRAcetam 250 MG TABLET PO SCH (21:32)
[2021-08-31] MEDS: Albumin 25% 25gram/100mL 25 GM/100 ML IV.SOLN IVPB SCH ×2 (00:23→07:55)
[2021-08-31 01:35] LABS: Basophils % 0.2 %; Red Cell Distribution Width 16.4 % (11.5-14.5)
[2021-08-31 01:38] LABS: Eosinophils % 0.4 %; Hematocrit 29.1 % (37.5-50.1); Hemoglobin 9.6 g/dL (12.9-16.9); Immature Granulocytes % 1.2 % (0-4); Lymphocytes # 0.3 K/mcL (0.6-4.6); Lymphocytes % 6.7 %; Mean Corpuscular Hemoglobin 31.7 pg (28.0-33.3); Mean Platelet Volume 12.5 fL (9.4-12.4); Monocytes # 0.3 K/mcL (0.0-1.3); Monocytes % 6.5 %; Neutrophils # 4.2 K/mcL (1.6-8.9); Nucleated Red Blood Cells 0.4 /100 WBC (0); Red Blood Count 3.03 M/mcL (4.19-5.50); White Blood Count 4.9 K/mcL (4.3-11.1)
[2021-08-31 01:50] LABS: Platelet Count 27 K/mcL (140-400)
[2021-08-31 01:56] LABS: Calcium 8.2 mg/dL (8.6-10.3); Potassium 4.2 mEq/L (3.5-5.1)
[2021-08-31] MEDS: Levalbuterol Neb 1.25 MG/3 ML IH SCH ×2 (03:53→07:40)
[2021-08-31] MEDS: Ipratropium Neb 0.5 MG NEBULIZER IH SCH ×2 (03:53→07:40)
[2021-08-31] MEDS: Levothyroxine 25 MCG TABLET PO SCH (06:01)
[2021-08-31] MEDS: Pantoprazole 40 MG VIAL IVP SCH ×2 (06:01→17:40)
[2021-08-31] MEDS: amLODIPine 5 MG TABLET PO SCH (08:02)
[2021-08-31] MEDS: levETIRAcetam 250 MG TABLET PO SCH ×2 (08:03→21:09)
[2021-08-31] MEDS ORDERED: predniSONE 10 MG TABLET PO SCH (09:00)
[2021-08-31] MEDS ORDERED: Levalbuterol Neb 1.25 MG/3 ML IH PRN (12:04)
[2021-08-31] MEDS ORDERED: Ipratropium Neb 0.5 MG NEBULIZER IH PRN (12:04)
[2021-09-01 02:20] LABS: Basophils % 0.2 %; Eosinophils # 0.1 K/mcL (0.0-0.6); Eosinophils % 0.9 %; Hematocrit 32.3 % (37.5-50.1); Hemoglobin 10.6 g/dL (12.9-16.9); Immature Granulocytes % 0.9 % (0-4); Lymphocytes # 0.5 K/mcL (0.6-4.6); Lymphocytes % 5.7 %; Mean Corpuscular HGB Conc 32.8 g/dL (31.6-35.5); Mean Corpuscular Hemoglobin 31.5 pg (28.0-33.3); Mean Corpuscular Volume 95.8 fL (83.0-100.0); Monocytes # 0.6 K/mcL (0.0-1.3); Monocytes % 6.4 %; Neutrophils # 7.5 K/mcL (1.6-8.9); Red Blood Count 3.37 M/mcL (4.19-5.50); Red Cell Distribution Width 16.8 % (11.5-14.5); Segmented Neutrophils % 85.9 %
[2021-09-01 02:38] LABS: White Blood Count 8.7 K/mcL (4.3-11.1)
[2021-09-01 02:39] LABS: Anisocytosis 1+ (Not Present); Platelet Count 35 K/mcL (140-400); Platelet Estimate Marked Decrease (Normal)
[2021-09-01 02:53] LABS: Calcium 8.4 mg/dL (8.6-10.3); Potassium 4.2 mEq/L (3.5-5.1)
[2021-09-01] MEDS: Pantoprazole 40 MG VIAL IVP SCH ×2 (07:34→17:38)
[2021-09-01] MEDS: Levothyroxine 25 MCG TABLET PO SCH (07:34)
[2021-09-01] MEDS: levETIRAcetam 250 MG TABLET PO SCH ×2 (08:39→20:40)
[2021-09-01] MEDS: predniSONE 10 MG TABLET PO SCH (08:39)
[2021-09-01] MEDS: amLODIPine 5 MG TABLET PO SCH (08:39)
[2021-09-02] MEDS: Levothyroxine 25 MCG TABLET PO SCH (05:49)
[2021-09-02] MEDS: Pantoprazole 40 MG VIAL IVP SCH ×2 (05:49→18:05)
[2021-09-02 06:04] LABS: Basophils % 0.1 %; Eosinophils # 0.1 K/mcL (0.0-0.6); Eosinophils % 0.8 %; Hematocrit 35.7 % (37.5-50.1); Hemoglobin 11.1 g/dL (12.9-16.9); Immature Granulocytes % 0.8 % (0-4); Lymphocytes # 0.4 K/mcL (0.6-4.6); Lymphocytes % 4.1 %; Mean Corpuscular HGB Conc 31.1 g/dL (31.6-35.5); Mean Corpuscular Hemoglobin 30.6 pg (28.0-33.3); Mean Corpuscular Volume 98.3 fL (83.0-100.0); Mean Platelet Volume 12.8 fL (9.4-12.4); Monocytes # 0.6 K/mcL (0.0-1.3); Monocytes % 6.4 %; Neutrophils # 8.7 K/mcL (1.6-8.9); Red Blood Count 3.63 M/mcL (4.19-5.50); Red Cell Distribution Width 17.3 % (11.5-14.5); Segmented Neutrophils % 87.8 %; White Blood Count 9.9 K/mcL (4.3-11.1)
[2021-09-02 06:06] LABS: Platelet Count 47 K/mcL (140-400)
[2021-09-02 06:25] LABS: Calcium 8.9 mg/dL (8.6-10.3); Potassium 3.8 mEq/L (3.5-5.1)
[2021-09-02] MEDS: amLODIPine 5 MG TABLET PO SCH (09:18)
[2021-09-02] MEDS: levETIRAcetam 250 MG TABLET PO SCH ×2 (09:18→20:11)
[2021-09-02] MEDS: predniSONE 10 MG TABLET PO SCH (09:18)
[2021-09-03] MEDS: Levothyroxine 25 MCG TABLET PO SCH (05:57)
[2021-09-03] MEDS: Pantoprazole 40 MG VIAL IVP SCH ×2 (06:11→17:18)
[2021-09-03] MEDS: amLODIPine 5 MG TABLET PO SCH (08:54)
[2021-09-03] MEDS: levETIRAcetam 250 MG TABLET PO SCH ×2 (08:54→20:58)
[2021-09-03] MEDS: predniSONE 10 MG TABLET PO SCH (08:54)
[2021-09-03] MEDS ORDERED: Furosemide 80 MG in 0.9 % Sodium Chloride 50 ML IVPB ONE (10:30)
[2021-09-03] MEDS ORDERED: Albumin 25% 25gram/100mL 25 GM/100 ML IV.SOLN IVPB ONE (10:30)
[2021-09-03 14:26] LABS: Albumin 3.8 g/dL (3.5-5.7); Calcium 8.4 mg/dL (8.6-10.3); Calcium 8.5 mg/dL (8.6-10.3); Potassium 3.9 mEq/L (3.5-5.1)
[2021-09-04] MEDS: Levothyroxine 25 MCG TABLET PO SCH (05:57)
[2021-09-04] MEDS: Pantoprazole 40 MG VIAL IVP SCH (05:57)
[2021-09-04 06:32] LABS: Calcium 8.5 mg/dL (8.6-10.3); Potassium 3.7 mEq/L (3.5-5.1)
[2021-09-04] MEDS: predniSONE 10 MG TABLET PO SCH (08:54)
[2021-09-04] MEDS: levETIRAcetam 250 MG TABLET PO SCH ×2 (08:54→21:16)
[2021-09-04] MEDS ORDERED: Albumin 25% 25gram/100mL 25 GM/100 ML IV.SOLN IVPB ONE (10:00)
[2021-09-04] MEDS ORDERED: metOLazone 5 MG TABLET PO ONE (10:14)
[2021-09-04] MEDS ORDERED: Furosemide 100 MG in 0.9 % Sodium Chloride 50 ML IVPB ONE (12:00)
[2021-09-05 01:17] LABS: Hematocrit 30.5 % (37.5-50.1); Mean Corpuscular Volume 98.1 fL (83.0-100.0); Mean Platelet Volume 12.7 fL (9.4-12.4); Red Blood Count 3.11 M/mcL (4.19-5.50)
[2021-09-05 01:19] LABS: Hemoglobin 9.7 g/dL (12.9-16.9); Immature Platelets 9.9 % (1.1-6.1); Mean Corpuscular HGB Conc 31.8 g/dL (31.6-35.5); Mean Corpuscular Hemoglobin 31.2 pg (28.0-33.3); Red Cell Distribution Width 17.3 % (11.5-14.5); White Blood Count 9.1 K/mcL (4.3-11.1)
[2021-09-05 01:43] LABS: Calcium 8.4 mg/dL (8.6-10.3); Potassium 3.8 mEq/L (3.5-5.1)
[2021-09-05] MEDS: Levothyroxine 25 MCG TABLET PO SCH (05:39)
[2021-09-05] MEDS: levETIRAcetam 250 MG TABLET PO SCH ×2 (09:01→21:05)
[2021-09-05] MEDS: predniSONE 10 MG TABLET PO SCH (09:01)
[2021-09-05] MEDS ORDERED: Albumin 25% 25gram/100mL 25 GM/100 ML IV.SOLN IVPB ONE (13:22)
[2021-09-05] MEDS ORDERED: Furosemide 100 MG in 0.9 % Sodium Chloride 50 ML IVPB ONE (13:23)
[2021-09-05] MEDS: metOLazone 5 MG TABLET PO SCH (13:40)
[2021-09-06] MEDS: Levothyroxine 25 MCG TABLET PO SCH (04:58)
[2021-09-06 05:17] LABS: Hematocrit 28.8 % (37.5-50.1); Mean Corpuscular Volume 99.7 fL (83.0-100.0); Red Blood Count 2.89 M/mcL (4.19-5.50)
[2021-09-06 05:19] LABS: Basophils % 0.1 %; Eosinophils # 0.1 K/mcL (0.0-0.6); Eosinophils % 0.8 %; Hemoglobin 8.8 g/dL (12.9-16.9); Immature Granulocytes % 0.3 % (0-4); Immature Platelets 8.9 % (1.1-6.1); Lymphocytes # 0.3 K/mcL (0.6-4.6); Lymphocytes % 3.7 %; Mean Corpuscular HGB Conc 30.6 g/dL (31.6-35.5); Mean Corpuscular Hemoglobin 30.4 pg (28.0-33.3); Mean Platelet Volume 12.2 fL (9.4-12.4); Monocytes # 0.6 K/mcL (0.0-1.3); Monocytes % 6.7 %; Red Cell Distribution Width 17.2 % (11.5-14.5); Segmented Neutrophils % 88.4 %; White Blood Count 9.1 K/mcL (4.3-11.1)
[2021-09-06 05:21] LABS: Platelet Count 43 K/mcL (140-400)
[2021-09-06 05:39] LABS: Albumin 3.4 g/dL (3.5-5.7); Albumin/Globulin Ratio 1.7 (1.1-2.2); Bilirubin,Direct 0.2 mg/dL (0.0-0.2); Bilirubin,Indirect 0.4 mg/dL (0.0-1.0); Bilirubin,Total 0.6 mg/dL (0.3-1.0); Calcium 8.5 mg/dL (8.6-10.3); Magnesium 1.8 mg/dL (1.6-2.6); Potassium 3.6 mEq/L (3.5-5.1); Total Protein 5.4 g/dL (6.4-8.9)
[2021-09-06 06:01] LABS: Folate 4.1 ng/mL (3.0-16.0)
[2021-09-06] MEDS: levETIRAcetam 250 MG TABLET PO SCH ×2 (07:53→21:08)
[2021-09-06] MEDS: metOLazone 5 MG TABLET PO SCH (07:54)
[2021-09-06] MEDS: predniSONE 10 MG TABLET PO SCH (07:54)
[2021-09-06] MEDS ORDERED: Albumin 25% 25gram/100mL 25 GM/100 ML IV.SOLN IVPB ONE (12:29)
[2021-09-06] MEDS ORDERED: Furosemide 100 MG in 0.9 % Sodium Chloride 50 ML IVPB ONE (14:00)
[2021-09-06] MEDS: Melatonin 3 MG TABLET PO PRN (21:07)
[2021-09-07] MEDS: Levothyroxine 25 MCG TABLET PO SCH (05:47)
[2021-09-07 06:24] LABS: Basophils % 0.1 %; Eosinophils # 0.1 K/mcL (0.0-0.6); Eosinophils % 0.7 %; Hematocrit 28.9 % (37.5-50.1); Hemoglobin 8.9 g/dL (12.9-16.9); Immature Granulocytes % 0.3 % (0-4); Immature Platelets 10.2 % (1.1-6.1); Lymphocytes # 0.4 K/mcL (0.6-4.6); Lymphocytes % 4.8 %; Mean Corpuscular HGB Conc 30.8 g/dL (31.6-35.5); Mean Corpuscular Hemoglobin 30.9 pg (28.0-33.3); Mean Corpuscular Volume 100.3 fL (83.0-100.0); Mean Platelet Volume 12.9 fL (9.4-12.4); Monocytes # 0.4 K/mcL (0.0-1.3); Monocytes % 5.7 %; Neutrophils # 6.5 K/mcL (1.6-8.9); Red Blood Count 2.88 M/mcL (4.19-5.50); Red Cell Distribution Width 17.3 % (11.5-14.5); Segmented Neutrophils % 88.4 %; White Blood Count 7.3 K/mcL (4.3-11.1)
[2021-09-07 06:25] LABS: Platelet Count 40 K/mcL (140-400)
[2021-09-07 06:41] LABS: Calcium 8.5 mg/dL (8.6-10.3); Magnesium 1.8 mg/dL (1.6-2.6); Potassium 3.4 mEq/L (3.5-5.1)
[2021-09-07] MEDS ORDERED: NON-FORMULARY MEDICATION 1 EACH EACH (Pantoprazole Sodium [Protonix] 40 MG Tablet.Dr) PO SCH (09:00)
[2021-09-07] MEDS: metOLazone 5 MG TABLET PO SCH (09:08)
[2021-09-07] MEDS: levETIRAcetam 250 MG TABLET PO SCH ×2 (09:09→20:26)
[2021-09-07] MEDS: Aspirin 81 MG TAB.CHEW PO SCH (09:09)
[2021-09-07] MEDS ORDERED: *HR* LORazepam 2 MG/ML VIAL IVP ONE (21:14)
[2021-09-07] MEDS: Levalbuterol Neb 1.25 MG/3 ML IH SCH (21:21)
[2021-09-08] MEDS: Levalbuterol Neb 1.25 MG/3 ML IH SCH ×4 (03:48→15:25)
[2021-09-08] MEDS: Levothyroxine 25 MCG TABLET PO SCH (05:35)
[2021-09-08 05:39] LABS: Basophils % 0.1 %; Hemoglobin 8.9 g/dL (12.9-16.9); Immature Granulocytes % 0.4 % (0-4); Mean Corpuscular Volume 100.7 fL (83.0-100.0); Red Cell Distribution Width 17.4 % (11.5-14.5)
[2021-09-08 05:42] LABS: Eosinophils # 0.1 K/mcL (0.0-0.6); Eosinophils % 0.9 %; Hematocrit 29.5 % (37.5-50.1); Immature Platelets 7.3 % (1.1-6.1); Lymphocytes # 0.3 K/mcL (0.6-4.6); Lymphocytes % 4.3 %; Mean Corpuscular HGB Conc 30.2 g/dL (31.6-35.5); Mean Corpuscular Hemoglobin 30.4 pg (28.0-33.3); Mean Platelet Volume 11.7 fL (9.4-12.4); Monocytes # 0.4 K/mcL (0.0-1.3); Monocytes % 5.1 %; Neutrophils # 6.7 K/mcL (1.6-8.9); Red Blood Count 2.93 M/mcL (4.19-5.50); Segmented Neutrophils % 89.2 %; White Blood Count 7.5 K/mcL (4.3-11.1)
[2021-09-08 05:46] LABS: Platelet Count 47 K/mcL (140-400)
[2021-09-08 05:54] LABS: Calcium 8.6 mg/dL (8.6-10.3); Magnesium 1.7 mg/dL (1.6-2.6); Phosphorous 5.2 mg/dL (2.7-4.5)
[2021-09-08 07:21] VITALS: O2SAT 94
[2021-09-08] MEDS: Aspirin 81 MG TAB.CHEW PO SCH (10:13)
[2021-09-08] MEDS: levETIRAcetam 250 MG TABLET PO SCH (10:13)
[2021-09-08] MEDS: metOLazone 5 MG TABLET PO SCH (10:13)
[2021-09-08 11:37] VITALS: BP 92/58; PULSE 95; TEMP 98.4
== END 2021-09-08 17:45 | disposition hospice, home (50) | DRG 871 ==
LOC: 2ANU 14:11 → EMEROOARM 14:11 → 2ANU 22:03 → 2NNU 08-24 12:38 → SUATTDRO 08-25 16:12 → 2ANU 08-30 02:14
PROVIDERS: ADMIT Internal Medicine; ATTEND Pharmacist